=== PATIENT | male | born 1990 | race African-American/Black ===

== ENCOUNTER 2018-03-14 08:17 | Emergency (ER) | payer SELFPAY ==
[~2018-03-14] VITALS: Ht 188 cm; Wt 130.0 kg
[2018-03-14] MEDS ORDERED: SODIUM CHLORIDE 0.9% 1000ML BAG (SEPSIS BOLUS) IV ONE (08:30)
[2018-03-14] MEDS ORDERED: EPINEPHRINE 0.1MG/ML (1:10,000) 10ML SYR ONE ×6 (08:38→15:11)
[2018-03-14 08:41] LABS: EOSINOPHILS % 2.3 % (0.0-5.0); HEMATOCRIT. 48.3 % (42.0-52.0); HEMOGLOBIN. 15.8 g/dL (14.0-18.0); LYMPHOCYTES % 52.2 % (20.0-50.0); MEAN CORPUSCULAR HEMOGLOBIN 29.8 pg (28.0-32.0); MEAN CORPUSCULAR VOLUME 91.4 fL (80.0-94.0); MEAN PLATELET VOLUME 7.9 fl (7.4-10.4); NEUTROPHILS % 31.5 % (40.0-76.0); PLATELET 200 x1000/uL (130-400); RED BLOOD CELL COUNT 5.29 mill/uL (4.7-6.1); RED CELL DISTRIBUTION WIDTH 15.1 % (11.6-14.6)
[2018-03-14 08:46] LABS: INR 1.1; PROTHROMBIN TIME 10.8 sec (9.1-11.1)
[2018-03-14 08:47] LABS: CHLORIDE 106 mEq/L (98-107)
[2018-03-14 08:51] LABS: ETHANOL BLOOD < 10 mg/dL
[2018-03-14 09:18] VITALS: BP 0/0
[2018-03-14] MEDS ORDERED: ALTEPLASE 100MG/VIAL IV ONE (14:45)
[2018-03-14] MEDS ORDERED: CALCIUM CHLORIDE 1GM/10ML SYR IV ONE (15:11)
[2018-03-14] MEDS ORDERED: MAGNESIUM SULFATE 4G IN WATER 100ML PREMIX IV ONE (15:18)
== END 2018-03-14 11:11 | disposition expired ==
LOC: ER 08:25 → CANBEDREQ 10:16 → ER 11:11
DX: I46.9 Cardiac arrest, cause unspecified (principal); R06.81 Apnea, not elsewhere classified; E87.2 Acidosis; R73.9 Hyperglycemia, unspecified; E88.09 Other disorders of plasma-protein metabolism, not elsewhere classified; H57.04 Mydriasis; F12.10 Cannabis abuse, uncomplicated
CPT/HCPCS: 31500; 36415; 80053; 83605; 84145; 84484; 85025; 85610; 87040; 92950; 96360; 99291; G0482; J3475; J3490; J7030; J2997